=== PATIENT | male | born 1990 | race Caucasian/White ===

== ENCOUNTER 2022-02-12 00:43 | Emergency (ER) | payer MEDICAID ==
[2022-02-12 00:54] VITALS: BP_SYST 134
--- NOTE | 2022-02-12 01:03 | NUR ---
Patient ambulatory to bed 2 for evaluation and treatment
[2022-02-12] MEDS ORDERED: MORPHINE 4 MG INJ. 4 MG/ML VIAL IM ONE (01:15)
--- NOTE | 2022-02-12 01:25 | NUR ---
pt came in with pain in the right testical. he said pin is 7/10. pt is ambulatory. room air.
[2022-02-12] MEDS ORDERED: HYDR-3917 PO (02:10)
[2022-02-12 03:37] VITALS: BP_SYST 134
--- NOTE | 2022-02-12 03:38 | NUR ---
Patient given written and verbal discharge instructions and verbalizes understanding. ER MD discussed with patient the results and treatment provided. Patient in stable condition. ID arm band removed. Rx of pain meds given. Patient educated on pain management and to follow up with PMD. Pain Scale 0/10. Opportunity for questions provided and answered. Medication side effect fact sheet provided. pt left with his belonigings
== END 2022-02-12 02:53 | disposition home or self-care (01) ==
LOC: SED 00:43
DX: C62.91 Malignant neoplasm of right testis, unspecified whether descended or undescended (principal); Z79.899 Other long term (current) drug therapy
CPT/HCPCS: 99284; 76870; 96372; J2270